=== PATIENT | male | born 1975 | race Caucasian/White ===

== ENCOUNTER 2019-04-15 00:30 | Emergency (ER) | payer BC ==
[2019-04-15] MEDS: FLUORESCEIN STRIP RIGHT EYE (02:11)
[2019-04-15] MEDS: TETRACAINE 0.5% 4 ML OPH RIGHT EYE (02:11)
== END 2019-04-15 03:04 | disposition home or self-care (01) ==
LOC: FTE 00:30
DX: S05.01XA Injury of conjunctiva and corneal abrasion without foreign body, right eye, initial encounter (principal); F17.210 Nicotine dependence, cigarettes, uncomplicated; X58.XXXA Exposure to other specified factors, initial encounter; Y92.9 Unspecified place or not applicable
CPT/HCPCS: 99283; Z7502